=== PATIENT | male | born 1950 | race African-American/Black ===

== ENCOUNTER 2018-04-17 09:19 | Emergency (ER) | payer MEDICARE, OTHER ==
[2018-04-17 10:12] VITALS: BP 123/70
[2018-04-17] MEDS ORDERED: Lidocaine 1% MPF* 2 ML VIAL INJ ONE (10:33)
--- NOTE | 2018-04-17 10:34 | UC ---
Hand/Wrist HPI - HPI Summary HPI Summary: Patient cut his left thumb on a putty knife while changing a window. This occurred just prior to arrival. His tetanus shot is up-to-date, definitely within the past 10 years. He denies any numbness or tingling. He denies any limited range of motion. He denies any other injuries offers no other complaints. - History Of Current Complaint Chief Complaint: UCLaceration Stated Complaint: LEFT THUMB LACERATION Time Seen by Provider: 04/17/18 10:27 Hx Obtained From: Patient Onset/Duration: Sudden Onset Pain Intensity: 0 Alleviating Factor(s): Nothing Associated Signs And Symptoms: Negative: Weakness, Numbness/Tingling - Allergies/Home Medications Allergies/Adverse Reactions: Allergies Allergy/AdvReac Type Severity Reaction Status Date / Time No Known Allergies Allergy Verified 04/17/18 10:12 Home Medications: Home Medications Nitroglycerin TAB 0.4 MG* 0.4 mg SL PRN 04/17/18 [History] Rivaroxaban TAB(*) [Xarelto 10 mg (*)] 10 mg PO DAILY 04/17/18 [History Confirmed 04/17/18] Seizure Medication 04/17/18 [History] glyBURIDE TAB* [Diabeta TAB*] 2.5 mg PO DAILY 04/17/18 [History Confirmed ] PMH/Surg Hx/FS Hx/Imm Hx Endocrine History: Diabetes Cardiovascular History: Cardiac Disease Neurological History: Seizures - Surgical History Surgical History: Yes Surgery Procedure, Year, and Place: Triple Bypass - 2005 - Family History Known Family History: Positive: Diabetes - Social History Occupation: Retired Alcohol Use: None Substance Use Type: None Smoking Status (MU): Former Smoker - Immunization History Most Recent Tetanus Shot: UTD Hx Tetanus, Diphtheria Vaccination: Yes Vaccination Up to Date: Yes Review of Systems Constitutional: Negative Skin: Other - Cut L thumb Eyes: Negative ENT: Negative Respiratory: Negative Cardiovascular: Negative Gastrointestinal: Negative Genitourinary: Negative Motor: Negative Neurovascular: Negative Musculoskeletal: Negative Neurological: Negative Psychological: Negative Is Patient Immunocompromised?: No All Other Systems Reviewed And Are Negative: Yes Physical Exam Triage Information Reviewed: Yes Appearance: Well-Appearing Vital Signs: Initial Vital Signs Temp 98.0 F 04/17/18 10:05 Pulse 93 04/17/18 10:05 Resp 18 04/17/18 10:05 BP 123/70 04/17/18 10:05 Pulse Ox 97 04/17/18 10:05 Vital Signs Reviewed: Yes Eyes: Positive: Conjunctiva Clear ENT: Positive: Normal ENT inspection Neck: Positive: Supple, Nontender Respiratory: Positive: Lungs clear, Normal breath sounds Cardiovascular: Positive: RRR, No Murmur Abdomen Description: Positive: Nontender, No Organomegaly, Soft Bowel Sounds: Positive: Present Musculoskeletal: Positive: Other: - 2CM Laceration L Dorsal thumb. Mild active bleeding. Gross s/v/m is intact. Rest of hand is atraumatic. Neurological: Positive: Alert Psychological: Positive: Age Appropriate Behavior Skin Exam: Normal Hand/Wrist Course/Dx - Course Course Of Treatment: Procedure: Timeout done. Left thumb prepped with Betadine. Local through open laceration with 2 mL's 1% lidocaine and wound edges. Wound explored and extensor tendon laceration appreciated joint appears to be intact. No foreign bodies. Wound irrigated with copious amounts of sterile sodium chloride. Reprepped with Betadine and draped in sterile fashion. Wound closed with 5-0 nylon and a single horizontal mattress +2 simple stitches. Bleeding ceased with closure. Wound covered with bacitracin and bandaged. Thumb placed in extension with volar aluminum foam splint. Tip of thumb had gross sensory vascular function post procedure. Patient tolerated procedure well. Sterile technique was used for the procedure. - Differential Dx/Diagnosis Provider Diagnoses: 2 cm laceration left dorsal thumb with extensor tendon injury Discharge - Sign-Out/Discharge Documenting (check all that apply): Patient Departure All imaging exams completed and their final reports reviewed: No Studies - Discharge Plan Condition: Stable Disposition: HOME Prescriptions: Cephalexin CAP* [Keflex CAP*] 500 mg PO TID #21 cap Patient Education Materials: Tendon Laceration (ED) Referrals: He Kelley MD [Primary Care Provider] - If Needed Jacqueline Galloway MD [Medical Doctor] - 1 Day Additional Instructions: KEEP SPLINT ON AT ALL TIMES UNTIL ORTHOPEDIC FOLLOW UP - Billing Disposition and Condition Condition: STABLE Disposition: Home
== END 2018-04-17 11:17 | disposition home or self-care (01) ==
LOC: UCCORT 09:19
DX: S66.202A Unspecified injury of extensor muscle, fascia and tendon of left thumb at wrist and hand level, initial encounter (principal); W26.0XXA Contact with knife, initial encounter; Y93.89 Activity, other specified; Y92.9 Unspecified place or not applicable; S61.012A Laceration without foreign body of left thumb without damage to nail, initial encounter; E11.9 Type 2 diabetes mellitus without complications; R56.9 Unspecified convulsions; I51.9 Heart disease, unspecified; Z87.891 Personal history of nicotine dependence
CPT/HCPCS: 12001; 99202; G0463